=== PATIENT | female | born 1940 | race African-American/Black ===

== ENCOUNTER 2022-07-13 10:16 | Outpatient (CLI) | payer OTHER, SELFPAY ==
[2022-07-13 10:44] VITALS: PULSE 70; O2SAT 97
[2022-07-13 10:46] VITALS: PULSE 82; O2SAT 99
[2022-07-13 10:57] VITALS: PULSE 92; O2SAT 97
--- NOTE | 2022-07-13 10:58 | HOMEO2EVAL ---
Evaluation was performed at [facility] Home Oxygen Evaluation RC: Home Oxygen (O2) Evaluation Start: 07/13/22 10:56 Freq: Status: Active Protocol: RPE Activity Type Activity Date Activity User E-sign Co-sign Detail Recorded Client Recorded Date Recorded By Document 07/13/22 10:44 KRM [email or web address] 07/13/22 10:58 KRM Document 07/13/22 10:46 KRM [email or web address] 07/13/22 10:58 KRM Document 07/13/22 10:57 KRM [email or web address] 07/13/22 10:58 KRM 07/13/22 07/13/22 07/13/22 10:44 10:46 10:57 Home O2 Evaluation [Oxygen] -Test Phase Resting Exercise Exercise -Oxygen Delivery Room Air Room Air Room Air [Pulse Oximetry] -Pulse Oximetry (90-100 %) 97 99 97 [Pulse Rate] -Pulse Rate (60-100 beats/min) 70 82 92 [Evaluation] -Activity Tolerance Good Good [Exercise] -Ambulation Distance (feet) 200 -Ambulation Distance (meters) 60.95 [Charges] -Treatment Charges O2 Evaluation - Outpatient
--- NOTE | 2022-07-22 16:36 | WPDPFTINT ---
PFT Procedure Performed PFT Procedure Performed Spirometry with Pre/Post Bronchodilator Plethysmography (Lung Vol) Diffusing Cap (DLCO) Flow Vol Loop PFT Interpretation DOS: 07/13/2022 REQUESTING: Dr. Krause REASON FOR TESTING: shortness of breath PULMONARY FUNCTION TESTS Results are reliable and reproducible. Spirometry: pre bronchodilator FEV1 is 1.22 L, 81% predicted, normal. Pre bronchodilator FVC is 1.87 L, 95%, normal. FEV1/ FVC is 65%, normal. [id number]% is 0.51 L, 40% predicted, low end of normal. After bronchodilator administration, there was a 9% increase in FEV1, 110 ml. There is a 3% increase in the FVC 50 ml. There is a 46% increase in the FEF 25-75%, this become 0.74 L which is statistically significant. Lung volumes: Total lung capacity 4.78 L, 115% predicted, normal. Residual volume 2.71 L, 126% predicted, normal. RV/TLC is 57%, upper end of normal. Airway resistance 103% normal. Diffusion: DLCO Is 10.8, 59% predicted, moderately decreased. DLCO / VA is 3.88, 93% predicted, normal. Flow volume loop: This shows coving of the expiratory limb. 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 Compared to a prior study that was documented in Dr Krause's office visit from 06/28/2022, there are several changes. The study was from [facility] from 02/28/2022.? There were no flow loop tracings to evaluate. ?There were no lower limits of normal that accompany the report. The pre bronchodilator FVC was 1.76 L, 87% predicted, normal. The pre bronchodilator FEV1 is 1.30 L, 84%, similar to current value. The pre bronchodilator FEV1:FVC ratio was 75%, now 65%. The post bronchodilator FVC is 1.33 L, representing a 24% decrease.? The post bronchodilator FEV1 is 1.11 L, representing a 14% decrease. The total lung capacity was 4.47 L, 94% predicted, similar to current value. The residual volume was 2.65 L, 114% predicted, similar to current RV. The DLCO is 6.02, 34% predicted, and now, the DLCO is 10.8, 59%, better. The DLCO adjusted for hemoglobin carboxyhemoglobin is 6.46, 36% predicted. The interpretation states that FVC, FEV1, FEV1:? FVC ratio and FEF 25-75 are all within normal limits.? The MVV is reduced.? Lung volumes are within normal limits.? Following administration of bronchodilators, there is no significant response.? The reduced diffusing capacity indicates a severe loss of functional alveolar capillary surface.? Maldistribution of ventilation is indicated by the difference between the alveolar volume and the total lung capacity. Conclusion: The reduced MVV in the absence of significant airway obstruction suggests the presence of neuromuscular disease.? The diffusing defect is consistent with a pulmonary vascular process. ? Tanya Freeman MD
== END 2022-07-13 10:17 | disposition home or self-care (01) ==
LOC: ANHPFT 10:16
PROVIDERS: PCP Family Medicine; Visit Provider Internal Medicine Pulmonary Disease
DX: R06.00 Dyspnea, unspecified (principal)
CPT/HCPCS: 94060; 94200; 94618; 94726; 94729

== ENCOUNTER 2022-10-13 09:39 | Outpatient (CLI) | payer OTHER, SELFPAY ==
[2022-10-13 10:14] LABS: Appearance Urine Clear (Clear); Bilirubin Urine Negative (Negative); Blood Urine Negative (Negative); Color Urine Yellow (Yellow); Glucose Urine UA Negative (Negative); Ketones Urine Negative (Negative); Leukocyte Esterase Ur 1+ LEU/UL (Negative); Nitrate Urine Negative (Negative); Protein Urine Negative (Negative); Specific Grav Ur 1.015 (1.001-1.035); Urobilinogen Urine 0.2 mg/dL (<2.0)
[2022-10-13 10:16] LABS: Hematocrit 35.6 % (37.0-47.0); Hemoglobin 11.4 g/dL (12.0-15.0); Mean Corpuscular Hemoglobin 30.3 pg (26-34); Mean Corpuscular Volume 94.7 fl (80-100); Mean Platelet Volume 10.5 fl (7.4-10.4); Platelet Count Result 162 k/mm3 (150-375); Red Blood Count 3.76 M/mm3 (4.2-5.4); Red Cell Distribution Width 13.9 % (11.5-14.5); White Blood Count 5.2 K/mm3 (4.5-10.0)
[2022-10-13 10:17] LABS: Bacteria Urine Trace /hpf; RBC Urine 0-2 /hpf (0-2); Squamous Epithelial Cell Urine Rare /hpf (Few); WBC Urine 0-3 /hpf
[2022-10-13 10:30] LABS: Add Urine Microscopic? YES
[2022-10-13 10:40] LABS: Alanine Aminotransferase 18 U/L (6-35); Albumin Level 4.1 g/dL (3.5-5.1); Alkaline Phosphatase 51 U/L (38-126); Anion Gap 6 mmol/L (8-16); Aspartate Amino Transferase 26 U/L (14-36); Bilirubin,Total 0.5 mg/dL (0.2-1.3); Blood Urea Nitrogen 18 mg/dL (7-17); CRP < 0.5 mg/dL (<1.0); Calcium 9.1 mg/dL (8.4-10.2); Carbon Dioxide 29 mmol/L (22-30); Chloride 108 mmol/L (98-107); Estimated Glomerular Filt Rate 40; Glucose 159 mg/dL (65-110); Potassium 3.9 mmol/L (3.4-5.0); Sodium 143 mmol/L (137-145); Uric Acid 8.2 mg/dL (2.5-7.5)
[2022-10-13 10:42] LABS: Erythrocyte Sedimentation Rate 54 mm/hr (0-20)
== END 2022-10-13 09:40 | disposition home or self-care (01) ==
LOC: ANHLAB 09:41
PROVIDERS: PCP Family Medicine; Visit Provider Internal Medicine
DX: R06.00 Dyspnea, unspecified (principal); M06.09 Rheumatoid arthritis without rheumatoid factor, multiple sites; R06.89 Other abnormalities of breathing; M19.90 Unspecified osteoarthritis, unspecified site
CPT/HCPCS: 36415; 80053; 81001; 84550; 85027; 85652; 86140; 96365; 96366; 99212; Q5104; A9270; G0463; J7050

== ENCOUNTER 2023-01-06 09:08 | Outpatient (CLI) | payer OTHER, SELFPAY ==
[2023-01-06 09:31] LABS: Hematocrit 33.9 % (37.0-47.0); Hemoglobin 10.8 g/dL (12.0-15.0); Mean Corpuscular HGB Conc 31.9 g/dl (32-36); Mean Corpuscular Hemoglobin 30.6 pg (26-34); Mean Platelet Volume 10.6 fl (7.4-10.4); Platelet Count Result 151 k/mm3 (150-375); Red Blood Count 3.53 M/mm3 (4.2-5.4); Red Cell Distribution Width 12.9 % (11.5-14.5); White Blood Count 5.7 K/mm3 (4.5-10.0)
[2023-01-06 09:47] LABS: Alanine Aminotransferase 22 U/L (6-35); Albumin Level 4.3 g/dL (3.5-5.1); Alkaline Phosphatase 52 U/L (38-126); Anion Gap 7 mmol/L (8-16); Aspartate Amino Transferase 24 U/L (14-36); Bilirubin,Total 0.6 mg/dL (0.2-1.3); Blood Urea Nitrogen 27 mg/dL (7-17); CRP < 0.5 mg/dL (<1.0); Calcium 9.5 mg/dL (8.4-10.2); Carbon Dioxide 30 mmol/L (22-30); Chloride 103 mmol/L (98-107); Estimated Glomerular Filt Rate 44; Glucose 124 mg/dL (65-110); Potassium 3.9 mmol/L (3.4-5.0); Sodium 140 mmol/L (137-145); Uric Acid 9.5 mg/dL (2.5-7.5)
[2023-01-06 10:17] LABS: Appearance Urine Clear (Clear); Bacteria Urine None Seen /hpf; Bilirubin Urine Negative (Negative); Blood Urine Negative (Negative); Color Urine Yellow (Yellow); Glucose Urine UA Negative (Negative); Ketones Urine Negative (Negative); Leukocyte Esterase Ur 2+ LEU/UL (Negative); Need Manual Microscopic Reviewed; Nitrate Urine Negative (Negative); Non Pathogenic Casts 0-2; Protein Urine Negative (Negative); RBC Urine 0-2 /hpf (0-2); Specific Grav Ur 1.009 (1.001-1.035); Squamous Epithelial Cell Urine None seen /hpf (Few); Urobilinogen Urine 0.2 mg/dL (<2.0); WBC Urine 0-5 /hpf; pH Urine 5.5 (5.0-9.0)
[2023-01-06 10:21] LABS: Add Urine Microscopic? YES
[2023-01-06 10:31] LABS: Erythrocyte Sedimentation Rate 81 mm/hr (0-20)
== END 2023-01-06 09:09 | disposition home or self-care (01) ==
LOC: ANHLAB 09:09
PROVIDERS: PCP Family Medicine; Visit Provider Internal Medicine
DX: M06.09 Rheumatoid arthritis without rheumatoid factor, multiple sites (principal); M19.90 Unspecified osteoarthritis, unspecified site
CPT/HCPCS: 36415; 80053; 81001; 84550; 85027; 85652; 86140; 99212; G0463

== ENCOUNTER 2024-02-06 11:00 | Outpatient (CLI) | payer OTHER, SELFPAY ==
[2024-02-06 11:19] LABS: Hematocrit 33.1 % (37.0-47.0); Hemoglobin 10.8 g/dL (12.0-15.0); Mean Corpuscular HGB Conc 32.6 g/dl (32-36); Mean Corpuscular Hemoglobin 30.5 pg (26-34); Mean Corpuscular Volume 93.5 fl (80-100); Mean Platelet Volume 10.1 fl (7.4-10.4); Platelet Count Result 166 k/mm3 (150-375); Red Blood Count 3.54 M/mm3 (4.2-5.4); Red Cell Distribution Width 13.9 % (11.5-14.5); White Blood Count 5.2 K/mm3 (4.5-10.0)
[2024-02-06 16:35] LABS: Appearance Urine Clear (Clear); Bacteria Urine None Seen /hpf; Bilirubin Urine Negative (Negative); Blood Urine Negative (Negative); Color Urine Yellow (Yellow); Glucose Urine UA Negative (Negative); Ketones Urine Negative (Negative); Leukocyte Esterase Ur Trace LEU/UL (Negative); Nitrate Urine Negative (Negative); Non Pathogenic Casts 0-2; Protein Urine Negative (Negative); RBC Urine 0-2 /hpf (0-2); Specific Grav Ur 1.006 (1.001-1.035); Squamous Epithelial Cell Urine None Seen /hpf (Few); Urobilinogen Urine 0.2 mg/dL (<2.0); WBC Urine 0-5 /hpf (0-3)
[2024-02-06 16:37] LABS: Add Urine Microscopic? YES
[2024-02-06 16:46] LABS: Alanine Aminotransferase 15 U/L (6-35); Albumin Level 4.1 g/dL (3.5-5.1); Alkaline Phosphatase 55 U/L (38-126); Anion Gap 8 mmol/L (4-12); Aspartate Amino Transferase 23 U/L (14-36); Bilirubin,Total 0.6 mg/dL (0.2-1.3); Blood Urea Nitrogen 13 mg/dL (7-17); CRP < 0.5 mg/dL (<1.0); Calcium 9.2 mg/dL (8.4-10.2); Carbon Dioxide 23 mmol/L (22-30); Chloride 110 mmol/L (98-107); Estimated Glomerular Filt Rate 52; Glucose 103 mg/dL (65-110); Potassium 4.1 mmol/L (3.4-5.0); Sodium 141 mmol/L (137-145)
[2024-02-06 16:49] LABS: Erythrocyte Sedimentation Rate 27 mm/hr (0-20)
== END 2024-02-06 11:01 | disposition home or self-care (01) ==
LOC: ANHLAB 11:02
PROVIDERS: Internal Medicine; PCP Family Medicine; Visit Provider Internal Medicine Hematology & Oncology
DX: M06.09 Rheumatoid arthritis without rheumatoid factor, multiple sites (principal)
CPT/HCPCS: 36415; 80053; 81001; 85027; 85652; 86140